=== PATIENT | male | born 1940 | race Caucasian/White ===

== ENCOUNTER → 2020-04-24 14:10 | Outpatient (BNVA) | payer MEDICARE, SELFPAY | PROVIDERS: Family Provider Internal Medicine; Visit Provider Dermatology | DX: L98.9 Disorder of the skin and subcutaneous tissue, unspecified (principal); D23.9 Other benign neoplasm of skin, unspecified; L82.1 Other seborrheic keratosis; L57.0 Actinic keratosis; B35.6 Tinea cruris; Z12.83 Encounter for screening for malignant neoplasm of skin | CPT/HCPCS: 17000; 17003; 99203 ==

== ENCOUNTER 2024-10-22 20:47 | Inpatient (IN) | payer MEDICARE, SELFPAY ==
[2024-10-22 20:52] VITALS: BP 135/74; PULSE 69; RESP 14; TEMP 36.6; O2SAT 94; BMI 31.1
--- NOTE | 2024-10-22 21:05 | ECG_ITS ---
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 Measurements Intervals [place] Rate: 74 P: 83 [place]: 255 QRS: 3 QRSD: 93 T: -5 QT: 378 QTc: 420 Interpretive Statements SINUS RHYTHM WITH FIRST DEGREE AV BLOCK LOW QRS VOLTAGE IN PRECORDIAL LEADS [QRS DEFLECTION < 1.0 mV IN CHEST LEADS] No previous ECG available for comparison Electronically Signed On 10-23-2024 13:17:33 RETAIL DEPARTMENT RESET by Dom Crawford M.D. [email or web address]
--- NOTE | 2024-10-22 21:06 | XRR_ITS ---
PROCEDURE INFORMATION: Exam: XR Chest Exam date and time: 10/22/2024 9:43 PM Age: 83 years old Clinical indication: Weakness; Fluctuating heart rate; HTN; Sudden onset vertigo TECHNIQUE: Imaging protocol: Radiologic exam of the chest. Views: 1 view. COMPARISON: No relevant prior studies available. FINDINGS: Lungs: Left basilar lung opacity could relate to atelectasis or pneumonia. Pleural spaces: Unremarkable. No pleural effusion. No pneumothorax. Heart/Mediastinum: Mildly enlarged pericardial silhouette. Bones/joints: Unremarkable. XR/XR chest 1V portable [id number] IMPRESSION: 1. Left basilar lung opacity could relate to atelectasis or pneumonia. 2. Mildly enlarged pericardial silhouette.
[2024-10-22 21:15] LABS: Glucose Point of Care 109 mg/dL (70-110)
--- NOTE | 2024-10-22 21:48 | ED_ITS ---
HPI - Dizziness 2 General: Chief Complaint: Dizziness Stated Complaint: dizzy n/d confused Time Seen by Provider: 10/22/24 21:40 History of Present Illness: HPI Narrative: P presents to the ER with complaints of dizziness that started about 30 minutes ago. He states walking in [employer] all of a sudden he got dizzy to the point he was swaying and not walking a straight line. Patient is also little bit nauseous at this time. Patient says he has not no other complaints at all. No headache chest pain patient says he is normally very healthy person does not have to go to the [facility] very often so this is very unusual. said he has been more congested the last 2 or 3 days and usual but denies any fever or chills, Related Data Home Medications Medication Instructions Recorded Confirmed aspirin 81 mg tablet,delayed 162 mg PO DAILY 04/24/20 04/24/20 release (Aspir-) tamsulosin 0.4 mg capsule (Flomax) 0.4 mg PO .COMPLEX 04/24/20 04/24/20 Previous Rx's Medication Instructions Recorded ketoconazole 2 % topical cream 1 applic topical DAILY #60 grams 04/24/20 mupirocin 2 % topical ointment 1 applic topical BID #22 grams 04/24/20 Allergies Allergy/AdvReac Type Severity Reaction Status Date / Time No Known Allergies Allergy Verified 10/22/24 21:04 Review of Systems 2 General: Reports: 10 or more systems reviewed and unremarkable except in HPI and below PFSH ED 2 PFSH: Family History Other Cancer Denies family history of Diabetes CAD (coronary artery disease) Social History Smoking and tobacco/nicotine status: never used tobacco/nicotine Alcohol intake: never Substance/Drug Use: never Physical Exam 2 Const: COMMON NORMALS: no acute distress, average body habitus, patient oriented x3, no limitations, healthy appearing, alert and well nourished HENMT: COMMON NORMALS: normocephalic, atraumatic, hearing grossly normal bilaterally, external ears normal, Normal external nose present and moist oral mucous membranes HEAD & SCALP: normocephalic and atraumatic NOSE: Normal external nose present EXTERNAL EAR: Yes external ears normal Neck/C-Spine: COMMON NORMALS: full ROM, no lymphadenopathy, supple, no meningeal signs, no JVD and Thyroid normal THYROID: Thyroid normal Chest: COMMONS NORMALS: normal inspection of the chest and normal palpation of entire chest wall Resp: COMMON NORMALS: normal respiratory effort, No retractions, No use of accessory muscles and clear to auscultation bilaterally AUSCULTATION: clear to auscultation bilaterally Cardio: COMMON NORMALS: no JVD, regular rate, regular rhythm, S1 normal heart sound present, S2 normal heart sound present, No gallops present (Cardio), No clicks present (Cardio), No murmurs present (Cardio) and No rub (Cardio) R ATE: regular rate RHYTHM: regular rhythm HEART SOUNDS: S1 normal heart sound present and S2 normal heart sound present GI: COMMON NORMALS: Normal to inspection, nondistended, normoactive bowel sounds present, Soft to palpation, non-tender, No hepatosplenomegaly present and no masses PALPATION: Yes Soft to palpation and Yes No hepatosplenomegaly present Neuro: COMMON NORMALS: patient oriented x3 SENSORIUM/ORIENTATION: Yes alert MENINGEAL SIGNS: Yes no meningeal signs Course 2 Vital Signs: Vital signs: Vital Signs Temperature 97.9 F 10/22/24 20:52 Pulse Rate 84 10/22/24 22:02 Respiratory Rate 16 10/22/24 22:02 Blood Pressure 152/84 10/22/24 22:02 Pulse Oximetry 94 10/22/24 22:02 Oxygen Delivery Me thod Room Air 10/22/24 20:52 MDM - Dizziness Medical Decision Making Exam was performed patient continued to have vertigo with vomiting requiring Zofran. Imaging was obtained as well as lab work, unremarkable his troponin initially was 161, 2-hour troponin was 141, both EKGs are as time was benign with no ST changes, head neck CTA showed no large vessel stenosis or occlusion, chest x-ray showed left basilar lung opacity could relate to atelectasis or pneumonia, however patient white count was normal. Discussed this case with Dr. Ho we will place patient observation. Medical Records I reviewed the patient's medical records. Lab Data I reviewed the patient's lab results. 10/22/24 21:50 10/22/24 21:50 Radiology Impressions Chest X-Ray 10/22/24 21:06 IMPRESSION: 1. Left basilar lung opacity could relate to atelectasis or pneumonia. 2. Mildly enlarged pericardial silhouette. Head/Neck CTA 10/22/24 21:56 IMPRESSION: No large vessel stenosis or occlusion. IMPRESSION: Less than 50% stenosis of the internal carotid arteries bilaterally according to the NASCET criteria. REFERENCES: NASCET CRITERIA. The degree of stenosis in the cervical segment of the internal carotid artery is based on NASCET criteria. Normal is no stenosis. Mild is less than 50% stenosis. Moderate is 50-69% stenosis. Severe is 70% to 99% stenosis. Total occlusion is no detectable patent lumen. Laboratory Results WBC 6.59 10^3/uL (3.29-11.43) 10/22/24 21:50 RBC 4.72 10^6/uL (3.85-5.65) 10/22/24 21:50 Hgb 14.70 g/dL (11.27-16.99) 10/22/24 21:50 Hct 45.2 % (37-53) 10/22/24 21:50 MCV 95.8 fl (82-101) 10/22/24 21:50 MCH 31.1 pg (27-33) 10/22/24 21:50 MCHC 32.5 g/dL (30-55) 10/22/24 21:50 RDW 13.8 % (12.1-15.1) 10/22/24 21:50 Plt Count 202 10^3/cmm (157-399) 10/22/24 21:50 MPV 10.4 fL (7.4-10.4) 10/22/24 21:50 Neut % (Auto) 70.9 % 10/22/24 21:50 Lymph % (Auto) 17.6 % 10/22/24 21:50 Hardeman % (Auto) 8.0 % 10/22/24 21:50 Eos % (Auto) 2.4 % 10/22/24 21:50 Baso % (Auto) 0.8 % 10/22/24 21:50 Neut # (Auto) 4.67 10^3/uL (1.8-7.7) 10/22/24 21:50 Lymph # (Auto) 1.2 10^3/uL (0.8-4.8) 10/22/24 21:50 Hardeman # (Auto) 0.5 10^3/uL (0.2-0.9) 10/22/24 21:50 Eos # (Auto) 0.2 10^3/uL (0.0-0.8) 10/22/24 21:50 Baso # (Auto) 0.1 10^3/uL (0.0-0.1) 10/22/24 21:50 Nucleated RBC % (auto) 0 % 10/22/24 21:50 Nucleated RBCs # 0.0 /100WBC 10/22/24 21:50 Sodium 136 mmol/L (136-145) 10/22/24 21:50 Potassium 4.0 mmol/L (3.5-5.1) 10/22/24 21:50 Chloride 101 mmol/L (98-107) 10/22/24 21:50 Carbon Dioxide 23 mmol/L (22-29) 10/22/24 21:50 Anion Gap 16.0 (5-19) 10/22/24 21:50 BUN 18 mg/dL (8-23) 10/22/24 21:50 Creatinine 0.8 mg/dL (0.7-1.2) 10/22/24 21:50 GFR Calculation Not Reportable 10/22/24 21:50 Glucose 155 mg/dL (65-115) H 10/22/24 21:50 POC Glucose 109 mg/dL (70-110) 10/22/24 21:02 Calculated Osmolality 287 mOsm/kg (285-295) 10/22/24 21:50 Calcium 9.2 mg/dL (8.5-10.5) 10/22/24 21:50 Magnesium 2.0 mg/dL (1.7-2.3) 10/22/24 21:50 Total Bilirubin 0.3 mg/dL (0.15-1.2) 10/22/24 21:50 AST 18 U/L (0-40) 10/22/24 21:50 ALT 18 U/L (0-41) 10/22/24 21:50 Alkaline Phosphatase 36 U/L (40-130) L 10/22/24 21:50 Troponin T Baseline 161 ng/L (0-15) H* 10/22/24 21:50 Troponin T 120 Minute 141.3 ng/L (0-15) H 10/22/24 23:36 Delta Troponin T -19.7 ABS# (0-10) L 10/22/24 23:36 C-Reactive Protein 3.0 mg/L (0.0-4.9) 10/22/24 21:50 Total Protein 6.6 g/dL (6.6-8.7) 10/22/24 21:50 Albumin 4.2 g/dL (3.5-5.2) 10/22/24 21:50 Globulin 2.4 g/dL (1.3-4.6) 10/22/24 21:50 Coronavirus (PCR) Negative (Negative) 10/22/24 21:50 Influenza A (PCR) Negative (Negative) 10/22/24 21:50 Influenza Type B (PCR) Negative (Negative) 10/22/24 21:50 RSV (PCR) Negative (Negative) 10/22/24 21:50 All radiology interpretation(s) finalized by discharge Discharge Plan Discharge Patient Disposition: Placed in Observation Clinical Impression: Vertigo, Nausea & vomiting, Elevated troponin Coding Level of Care Code ED Radio Communications Mechanician for Zachery Yang
--- NOTE | 2024-10-22 21:56 | CTR_ITS ---
PROCEDURE INFORMATION: Exam: CTA Head With Contrast, Arteriography Exam date and time: 10/22/2024 10:10 PM Age: 83 years old Clinical indication: Dizziness and giddiness and other: N/v; Sudden onset of severe dizziness with n/v and weakness. ; Additional info: Sudden onset vertigo, nausea vomiting TECHNIQUE: Imaging protocol: Computed tomographic angiography of the head with contrast. Exam focused on the arteries. 3D rendering (Not supervised by radiologist): MIP and/or 3D reconstructed images were created by the technologist. Radiation optimization: All CT scans at this facility use at least one of these dose optimization techniques: automated exposure control; mA and/or kV adjustment per patient size (includes targeted exams where dose is matched to clinical indication); or iterative reconstruction. Contrast material: OMNI 350; Contrast volume: 100 ml; Contrast route: INTRAVENOUS (IV); COMPARISON: l spine RADIATION DOSE METRICS: Total DLP (mGy-cm): 1089.77 FINDINGS: ANTERIOR CIRCULATION: Right internal carotid artery: Intracranial segment is patent with no significant stenosis. No aneurysm. Right middle cerebral artery: No occlusion or significant stenosis. No aneurysm. Right anterior cerebral artery: No occlusion or significant stenosis. No aneurysm. Left internal carotid artery: Intracranial segment is patent with no significant stenosis. No aneurysm. Left middle cerebral artery: No occlusion or significant stenosis. No aneurysm. Left anterior cerebral artery: No occlusion or significant stenosis. No aneurysm. POSTERIOR CIRCULATION: Right vertebral artery: No occlusion or significant stenosis. No aneurysm. Left vertebral artery: No occlusion or significant stenosis. It is tortuous at its origin. No aneurysm. Basilar artery: No occlusion or significant stenosis. No aneurysm. Right posterior cerebral artery: No occlusion or significant stenosis. No aneurysm. Left posterior cerebral artery: No occlusion or significant stenosis. No aneurysm. Brain: No hemorrhage. Diffuse periventricular white matter disease. No mass effect. No collections. Age related volume loss. Old left cerebellar infarct. Cerebral ventricles: No ventriculomegaly. Mastoid air cells: Mastoid air cells are aerated with no effusions. Paranasal sinuses: No significant air-fluid levels noted in the visualized sinuses. Bones/joints: No acute osseous abnormality. Soft tissues: Unremarkable. PROCEDURE INFORMATION: Exam: CTA Neck With Contrast Exam date and time: 10/22/2024 10:10 PM Age: 83 years old Clinical indication: Dizziness and giddiness and other: N/v; Sudden onset of severe dizziness with n/v and weakness. ; Additional info: Sudden onset vertigo, nausea vomiting TECHNIQUE: Imaging protocol: Computed tomographic angiography of the neck with contrast. Exam focused on the cervical segments of the vasculature. 3D rendering (Not supervised by radiologist): MIP and/or 3D reconstructed images were created by the technologist. Radiation optimization: All CT scans at this facility use at least one of these dose optimization techniques: automated exposure control; mA and/or kV adjustment per patient size (includes targeted exams where dose is matched to clinical indication); or iterative reconstruction. Contrast material: OMNI 350; Contrast volume: 100 ml; Contrast route: INTRAVENOUS (IV); COMPARISON: CR (CHEST, ) 10/22/2024 9:43 PM RADIATION DOSE METRICS: Total DLP (mGy-cm): 1089.77 FINDINGS: Right common carotid artery: There is minimal plaque noted in the right carotid bulb. Right internal carotid artery: No stenosis of the extracranial segment. No dissection or occlusion. Right external carotid artery: No occlusion or stenosis of the origin. Left common carotid artery: There is minimal plaque noted in the left carotid bulb. Left internal carotid artery: 5% stenosis of the extracranial segment. No dissection or occlusion. Left external carotid artery: No occlusion or stenosis of the origin. Right vertebral artery: Atherosclerotic disease with no significant stenosis. No dissection or occlusion. Left vertebral artery: Atherosclerotic disease with no significant stenosis. No dissection or occlusion. Aorta: Classic branching of the aorta with patency of the origins of the great vessels. Soft tissues: Normal. No significant soft tissue swelling. Bones/joints: No acute fracture. CT/CT angio headneck* [id number] IMPRESSION: No large vessel stenosis or occlusion. IMPRESSION: Less than 50% stenosis of the internal carotid arteries bilaterally according to the NASCET criteria. REFERENCES: NASCET CRITERIA. The degree of stenosis in the cervical segment of the internal carotid artery is based on NASCET criteria. Normal is no stenosis. Mild is less than 50% stenosis. Moderate is 50-69% stenosis. Severe is 70% to 99% stenosis. Total occlusion is no detectable patent lumen.
[2024-10-22 21:59] LABS: Basophils # 0.1 10^3/uL (0.0-0.1); Basophils % 0.8 %; Eosinophils # 0.2 10^3/uL (0.0-0.8); Eosinophils % 2.4 %; Hematocrit 45.2 % (37-53); Lymphocytes # 1.2 10^3/uL (0.8-4.8); Lymphocytes % 17.6 %; Mean Corpuscular HGB Conc 32.5 g/dL (30-55); Mean Corpuscular Hemoglobin 31.1 pg (27-33); Mean Corpuscular Volume 95.8 fl (82-101); Mean Platelet Volume 10.4 fL (7.4-10.4); Monocytes # 0.5 10^3/uL (0.2-0.9); Neutrophils # 4.67 10^3/uL (1.8-7.7); Neutrophils % 70.9 %; Nucleated Red Blood Cells % 0 %; Platelet Count 202 10^3/cmm (157-399); Red Blood Count 4.72 10^6/uL (3.85-5.65); Red Cell Distribution Width 13.8 % (12.1-15.1); White Blood Count 6.59 10^3/uL (3.29-11.43)
[2024-10-22] MEDS: ondansetron 2 mg/ML SDV 2 mL 8 MG IVP (22:01)
[2024-10-22 22:02] VITALS: BP 152/84; PULSE 84; RESP 16; O2SAT 94
[2024-10-22] MEDS: sodium chloride 0.9% 1,000 ML 999 ML IV (22:02)
[2024-10-22] MEDS: iohexol 350 mg/mL 500 mL Btl (per mL) IV (22:16)
[2024-10-22 22:32] LABS: Troponin(5th) Baseline 161 ng/L (0-15)
[2024-10-22 22:33] LABS: Alanine Aminotransferase 18 U/L (0-41); Albumin Level 4.2 g/dL (3.5-5.2); Alkaline Phosphatase 36 U/L (40-130); Aspartate Amino Transferase 18 U/L (0-40); Blood Urea Nitrogen 18 mg/dL (8-23); Calcium 9.2 mg/dL (8.5-10.5); Carbon Dioxide 23 mmol/L (22-29); Chloride 101 mmol/L (98-107); Creatinine Clr Calc Pharmacy 87.3707; Globulin 2.4 g/dL (1.3-4.6); Glucose 155 mg/dL (65-115); Osmolality Calculated 287 mOsm/kg (285-295); Sodium 136 mmol/L (136-145); Total Bilirubin 0.3 mg/dL (0.15-1.2); Total Protein 6.6 g/dL (6.6-8.7)
[2024-10-22 22:37] LABS: Covid PCR NEGATIVE (Negative); Influenza A NEGATIVE (Negative); Influenza B NEGATIVE (Negative); Respiratory Syncytial Virus Ce NEGATIVE (Negative)
--- NOTE | 2024-10-22 23:01 | ECG_ITS ---
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 Measurements Intervals [place] Rate: 68 P: 50 [place]: 273 QRS: 5 QRSD: 97 T: -14 QT: 408 QTc: 436 Interpretive Statements SINUS RHYTHM WITH FIRST DEGREE AV BLOCK LOW QRS VOLTAGE IN PRECORDIAL LEADS [QRS DEFLECTION < 1.0 mV IN CHEST LEADS] Compared to ECG 10/22/2024 21:05:39 No significant changes Electronically Signed On 10-23-2024 13:28:57 MILK PROCESSING WORKER by Dom Crawford M.D. [email or web address]
[2024-10-23] VITALS (9 sets, daily range): BP systolic 120–163; BP diastolic 75–98; PULSE 68–83; RESP 15–19; TEMP 36.3–36.7; O2SAT 94–97; BMI 33.5
[2024-10-23 00:06] LABS: Troponin 5 2HR 141.3 ng/L (0-15); Troponin 5 2HR Delta -19.7 ABS# (0-10)
--- NOTE | 2024-10-23 00:11 | P.HP_ITS ---
Providers/Chief Complaint 2 Primary Care Provider: Caro Schrader MD Chief Complaint: dizzy n/d confused History of Present Illness Carla Mandel is a 83 year old male with no significant past medical history, presented with chief complaint of dizziness. Patient is stating that he recently started working on his cardio, he has been doing treadmill for about a month, today he was at the [facility] when he started becoming dizziness, he describing dizziness room spinning in front of him, he has not experienced any chest pain or shortness of breath or diaphoresis but endorsing nausea and vomiting. No previous history of GA or CHF hypertension or diabetes. Patient was given aspirin by his PCP which he stopped taking. Patient consider himself to be perfectly healthy. Follows up with Dr. Sanchez as PCP. Workup in the ER revealed normal CBC, BMP, EKG unremarkable head CT unremarkable, does not have any focal deficit, symptoms consistent with BPPV however his troponin came back high at 161 trending down 141 patient not have any active chest pain shortness of breath EKG without ischemic or infarctive changes ACS protocol initiated, echo requested, Review of Systems 2 Const: Denies: fever(s) Eyes: Denies: change in vision ENMT: Denies: throat pain Card: Denies: chest pain Resp: Denies: dyspnea GI: Denies: abdominal pain Neuro: Reports: vertigo Medications/Allergies Home Medications Medication Instructions Recorded Confirmed Last Taken Type aspirin 81 mg tablet,delayed 162 mg PO DAILY 04/24/20 04/24/20 Unknown History release (Aspir-) ketoconazole 2 % topical cream 1 applic topical DAILY #60 grams 04/24/20 04/24/20 Unknown Rx mupirocin 2 % topical ointment 1 applic topical BID #22 grams 04/24/20 04/24/20 Unknown Rx tamsulosin 0.4 mg capsule (Flomax) 0.4 mg PO .COMPLEX 04/24/20 04/24/20 Unknown History Allergies Allergy/AdvReac Type Severity Reaction Status Date / Time No Known Allergies Allergy Verified 10/22/24 21:04 PFSH Acute 2 PFSH: Family History Other Cancer Denies family history of Diabetes CAD (coronary artery disease) Social History Smoking and tobacco/nicotine status: never used tobacco/nicotine Alcohol intake: never Substance/Drug Use: never Vitals/I&O/Wt Last Vital Signs Temp 97.9 F 10/22/24 20:52 Pulse 84 10/22/24 22:02 Resp 16 10/22/24 22:02 BP 152/84 10/22/24 22:02 Pulse Ox 94 10/22/24 22:02 O2 Del Method Room Air 10/22/24 20:52 Weight last 48 hrs Weight 104.326 kg Physical Exam 2 Narrative: Awake and alert GCS 15 AO x 4 Nonfocal neuroexam Pleasant and cooperative S1, S2 Currently on room air Hypertensive Distended nontender abdomen No active murmur Lower extremity no edema Patient laying supine without any active shortness of breath Doing well on room air Feels dizzy on movement of head Data 10/22/24 21:50 10/22/24 21:50 A&P Assessment and plan (1) Non-STEMI (non-ST elevated myocardial infarction): (2) Elevated troponin: (3) Vertigo: (4) Nausea & vomiting: (5) Posterior circulation stroke: Plan Non-STEMI Start ACS protocol Troponin trending down No active chest pain EKGs without ischemic or infarctive changes Check D-dimer Patient does not have any history of GA or CHF Echo requested Patient may need cardiology consultation depending on echo report Patient is stating that for last 1 month he has been running on the treadmill for his cardio Hypertension: Add lisinopril at this point does not take any medication at home Morbid obesity: No history of sleep apnea, check A1c level, BNP, hemoglobin A1c, lipid profile Dizziness Patient describing as room spinning in front of him Consistent with BPPV Rule out posterior circulation stroke Will request head MRI CTA head and neck unremarkable 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
--- NOTE | 2024-10-23 01:02 | MRR_ITS ---
PROCEDURE INFORMATION: Exam: MR Head Without Contrast Exam date and time: 10/23/2024 12:16 PM Age: 83 years old Clinical indication: Rapid onset severe dizziness, n/v resulting; Additional info: Dizzy TECHNIQUE: Imaging protocol: Magnetic resonance imaging of the head without contrast. COMPARISON: CT angio headneck* [id number] 10/22/2024 10:10 PM FINDINGS: Brain: There is restricted diffusion with high T2 weighted signal in the left inferior cerebellum involving the left posteroinferior cerebellar artery territory. Blooming artifact in the left frontal periventricular white matter, from prior micro bleed. No hemorrhagic transformation. No intracranial mass. Cerebral ventricles: Normal. No ventriculomegaly. Bones: Unremarkable. Paranasal sinuses: Normal as visualized. No acute sinusitis. Mastoid air cells: Normal as visualized. No mastoid effusion. Orbital cavities: Unremarkable. Soft tissues: Unremarkable. MR/MR head wo con* [id number] IMPRESSION: Acute infarct in the PICA territory with no hemorrhagic transformation.
--- NOTE | 2024-10-23 01:10 | USCV_ITS ---
Carla Mandel Age: 83 Gender: M : 1940 Exam Date: 10/23/2024 14:22 Ordering Phys: Taj Ho MD Technologist: Casper Booker [place]am [place] [facility] [place]: dizziness BP: 130 / 88 HR: 74 Rhythm: Sinus Technical Quality: Adequate MEASUREMENTS (Male / Female) Normal Values 2D ECHO LV Diastolic Diameter PLAX 5.5 cm 4.2 - 5.9 / 3.9 - 5.3 cm IVS Diastolic Thickness 1.1 cm 0.6 - 1.0 / 0.6 - 0.9 cm IVS Systolic Thickness 1.4 cm LVPW Diastolic Thickness 1.4 cm 0.6 - 1.0 / 0.6 - 0.9 cm LVPW Systolic Thickness 1.5 cm LVOT Diameter 2.0 cm LV Ejection Fraction 2D Teich 65.2 % LV Ejection Fraction MOD 4C 68.8 % LV Ejection Fraction MOD 2C 66.3 % LV Ejection Fraction 2C AL 64.8 % LA Diameter 3.7 cm RA Systolic Volume 4C AL 44.6 ml RA Systolic Volume 4C MOD 42.4 ml LA Sys Volume AL 48.0 cm cubed LA Sys Volume Index AL 20.4 cm cubed/m squared Aorta at Sinotubular Diameter 2.9 cm M-MODE LA Ao Ratio MM 1.8 AV Cusp Separation MM 1.2 cm DOPPLER AV Peak Velocity 158.0 cm/s MV Peak Velocity 89.0 cm/s MV Area PHT 4.5 cm squared Mitral E to A Ratio 0.8 TV Peak Velocity 311.0 cm/s TR Peak Velocity 338.0 cm/s TR Peak Gradient 45.7 mmHg TR Mean Velocity 290.0 cm/s TR Mean Gradient 34.7 mmHg TR Velocity Time Integral 102.4 cm PV Peak Velocity 115.0 cm/s RV Ejection Time 0.4 s FINDINGS Left Ventricle Left ventricle is normal in size. LV systolic function is normal with EF of 60-65%. No regional wall motion abnormalities are seen. Grade 1 diastolic dysfunction. Right Ventricle Normal in size and function Right Atrium Normal in size Left Atrium Normal in size Mitral Valve Structurally normal valve. Mild mitral regurgitation. Aortic Valve Structurally normal aortic valve. Trace aortic regurgitation. No significant stenosis. Tricuspid Valve Mild tricuspid regurgitation. Insufficient TR jet to calculate RVSP Pulmonic Valve Not well visualized Pericardium Normal Aorta Normal in size IVC Not well visualized CONCLUSIONS LV systolic function is normal with EF of 60-65% Grade 1 diastolic dysfunction Mild mitral regurgitation Trace aortic regurgitation Mild tricuspid regurgitation No comparison studies are available. Dom Crawford MD (Electronically Signed) Final Date: 24 October 2024 12:02 S
[2024-10-23] MEDS: aspirin 325 mg EC Tablet PO (01:26)
[2024-10-23] MEDS: clopidogrel 300 mg Tablet PO (01:26)
[2024-10-23] MEDS: enoxaparin 100 mg/mL Syringe SUBCUT (01:26)
[2024-10-23 02:04] LABS: Chol HDL Ratio 3.07 mg/dL (1.0-5.00); Cholesterol 181 mg/dL (0-200); HDL Cholesterol 59 mg/dL (60-100); LDL Cholesterol Calculated 114 mg/dL (50-129); NT Pro B Type Natriuretic Pept 287 pg/mL (0-450); Thyroid Stimulating Hormone 2.28 uIU/mL (0.27-4.20); Triglycerides 42 mg/dL (0-150); VLDL Cholestrol Calculation 8 mg/dL (0-30)
[2024-10-23 02:11] LABS: D Dimer 0.59 ug/mLFEU (0-0.59)
[2024-10-23 04:29] LABS: Basophils % 0.2 %; Eosinophils % 0.1 %; Hematocrit 46.3 % (37-53); Lymphocytes # 0.4 10^3/uL (0.8-4.8); Lymphocytes % 4.7 %; Mean Corpuscular HGB Conc 31.3 g/dL (30-55); Mean Corpuscular Hemoglobin 31.1 pg (27-33); Mean Corpuscular Volume 99.4 fl (82-101); Monocytes # 0.3 10^3/uL (0.2-0.9); Neutrophils # 7.59 10^3/uL (1.8-7.7); Neutrophils % 91.6 %; Nucleated Red Blood Cells % 0 %; Platelet Count 144 10^3/cmm (157-399); Red Blood Count 4.66 10^6/uL (3.85-5.65); Red Cell Distribution Width 13.7 % (12.1-15.1); White Blood Count 8.29 10^3/uL (3.29-11.43)
[2024-10-23 04:44] LABS: Estmated Average Glucose 108; Hemoglobin A1C 5.4 % (4.0-6.0)
[2024-10-23 04:54] LABS: Troponin 5 6HR 110.9 ng/L (0-15); Troponin 5 6HR Delta -50.1 ng/L (0-12)
--- NOTE | 2024-10-23 05:25 | ECG_ITS ---
[facility] Test Date: 2024-10-23 Pat Name: Carla Mandel Department: Room: 250 Gender: Male Inside B2B Sales: : 1940 Requested By: Jose Angel Peña Order Number: [id number] Caitlin MD: Dom Crawford M.D. Measurements Intervals [place] Rate: 75 P: 61 [place]: 261 QRS: 22 QRSD: 106 T: -28 QT: 376 QTc: 421 Interpretive Statements SINUS RHYTHM WITH FIRST DEGREE AV BLOCK Compared to ECG 10/22/2024 23:01:20 No significant changes Electronically Signed On 10-23-2024 13:28:48 PERSONAL INJURY LAW SPECIALIST by Dom Crawford M.D. [email or web address]
[2024-10-23 05:31] LABS: Vitamin B12 304 pg/mL (232-1245)
[2024-10-23 05:41] LABS: Blood Urea Nitrogen 14 mg/dL (8-23); Calcium 8.5 mg/dL (8.5-10.5); Carbon Dioxide 21 mmol/L (22-29); Chloride 99 mmol/L (98-107); Creatine Phosphokinase 77 U/L (39-308); Creatinine Clr Calc Pharmacy 90.3874; Glucose 131 mg/dL (65-115); Osmolality Calculated 276 mOsm/kg (285-295); Sodium 132 mmol/L (136-145)
[2024-10-23 05:42] LABS: Anion Gap 16.5 (5-19); Lactate Dehydrogenase 247 U/L (135-225); Potassium 4.5 mmol/L (3.5-5.1)
[2024-10-23] MEDS: ondansetron 2 mg/ML SDV 2 mL 4 MG IVP (06:09)
[2024-10-23] MEDS: efferdent effervescent 1 EACH DENTAL (06:39)
[2024-10-23] MEDS: tamsulosin 0.4 mg Capsule PO (10:20)
[2024-10-23] MEDS: atorvastatin 40 mg Tablet 80 MG PO (10:20)
--- NOTE | 2024-10-23 11:10 | PC.CHAP ---
Pastoral Care Encounter/Spiritual Assessment Type of Contact [] Declined sign fabricator visit [] Patient/Family/Request visit [] Outpatient visit [] Follow-up visit [] Physician referral [] Code/Alert [] Routine visit [] Staff referral [] Actively dying [] Patient sleeping [] Family support [] [] Out of room [] Palliative care [] [] Receiving care in room [] Pre-surgical visit [] Trauma [] Long length of stay [] ICU visit [] Other:Phone X2 Relational/Emotional Strength [] Patient feels connected with others/family/visitors/staff [] Distress [] Loneliness/isolation [] Abandonment Spirituality of Patient [] Person of Millie [] Attends Yarsanism of their Millie [] Believes in Prayer [] Reads Bible or Protestant materials [] There are Spiritual issues to be addressed Court [place] Interventions [] Prayer [] Active listening [] Non-anxious presence [] Spiritual/emotional support [] Crisis/trauma care [] Spiritual counseling [] Bereavement support [] Provided bereavement packet [] Provided Bible/devotional materials [] Provided toy/stuffed animal, coloring book to patient or family member [] Provided Communion [] Anointing/[place] [] Salvation [] Completed spiritual assessment [] Other: Impact on Illness or Injury [] Angry [] Fearful [] Anxious [] Often cries [] Exhaustion [] Unable to work [] Unable to attend adventist [] Unable to walk/stand [] Unable to read [] Unable to drive [] Unable to eat/drink [] Unable to sleep [] Unable to be with family [] Patient intubated [] Other: Summary Time spent with patient
--- NOTE | 2024-10-23 15:01 | P.MISC_ITS ---
Miscellaneous Note Note: Patient admitted this morning by family dinner service specialist. Agree with plan of care as documented in H&P. MRI is positive for posterior stroke. Met with patient and spouse. Discussed findings. Discussed plan of care.
[2024-10-23] MEDS: enoxaparin 40 mg/0.4 mL Syringe SUBCUT (21:24)
[2024-10-24] VITALS (9 sets, daily range): BP systolic 106–155; BP diastolic 66–87; PULSE 55–76; RESP 16–18; TEMP 36.6–37; O2SAT 93–97
[2024-10-24] MEDS: tamsulosin 0.4 mg Capsule PO (08:58)
[2024-10-24] MEDS: aspirin 81 mg EC Tablet PO (08:58)
[2024-10-24] MEDS: clopidogrel 75 mg Tablet PO (08:59)
[2024-10-24] MEDS: lisinopril 10 mg Tablet 5 MG PO (09:00)
[2024-10-24] MEDS: enoxaparin 40 mg/0.4 mL Syringe SUBCUT (09:01)
--- NOTE | 2024-10-24 11:02 | P.PN_ITS ---
Subjective 2 Subjective: Patient reports he starting to feel better today. His nausea has improved, nearly resolved. He worked with therapy yesterday. So far he is only been able to stand. Has not ambulated yet. Blood pressure soft overnight, slightly elevated this morning. Spouse is bedside and very supportive. We discussed ongoing plan of care including following up echo, monitoring of blood pressure, Occupational Therapy evaluation, continue physical therapy, and supportive care. They are in agreement. Medications: Reviewed: Yes Vitals/I&O/Wt Last Vital Signs Temp 97.9 F 10/24/24 10:52 Pulse 63 10/24/24 10:53 Resp 18 10/24/24 10:53 BP 137/76 10/24/24 10:52 Pulse Ox 95 10/24/24 10:53 O2 Del Method Room Air 10/24/24 10:53 10/23/24 10/24/24 10/24/24 22:59 06:59 14:59 Intake Total 240 / 600 360 / 360 Output Total 1400 / 1725 1240 / 2965 Balance -1160 / -1125 -1240 / -2365 360 / 360 Weight last 48 hrs Weight 110.495 kg Weight 111.947 kg Weight 112.173 kg Weight 104.326 kg Physical Exam 2 Narrative: General: Patient is awake and alert. Head: Normocephalic. Atraumatic. EOM intact. Neck: No JVD. Cardiovascular: RRR. No gallops. No murmurs. Lungs: Clear to auscultation, no use of accessory muscles, no crackles or wheezes. Skin: No jaundice. No rashes. Abdomen: Normal bowel sounds, abdomen soft and nontender. Genito Urinary: Genital exam not performed since complaints not related. Rectal: Rectal exam not performed since no symptoms indicated blood loss. Extremities: No cyanosis or clubbing. Musculoskeletal: No swollen or erythematous joints. Neurological: Moves all 4 extremities. No myoclonus. 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 Remains symptomatic but improving with treatment Continue dual antiplatelet therapy Continue high intensity statin Continue physical therapy Occupational Therapy evaluation pending End permissive hypertension Echo obtained, follow-up read Serial neurological exams (2) Elevated troponin: Troponin elevation secondary to acute stroke (3) Vertigo: Vertigo secondary to acute posterior stroke Treating underlying stroke (4) Nausea & vomiting: Nausea and vomiting secondary to significant vertigo from stroke Symptoms are improving Antiemetics as needed Continue treating underlying stroke Supportive care (5) Hypertension: And permissive hypertension Continue lisinopril 5 mg daily, titrate as needed Plan DVT ppx: Lovenox Attestations 2 Medical Necessity Statement*: Patient requires ongoing hospitalization for further workup and treatment of the stroke, follow-up with echo, additional therapy evaluations, and supportive care. Coding Level of Care Code [facility] Diagnoses Posterior circulation stroke I63.50 Elevated troponin R79.89 Vertigo R42 Nausea & vomiting R11.2 Hypertension I10
[2024-10-24 13:56] LABS: Basophils # 0.1 10^3/uL (0.0-0.1); Basophils % 0.7 %; Eosinophils # 0.2 10^3/uL (0.0-0.8); Eosinophils % 2.1 %; Lymphocytes # 0.9 10^3/uL (0.8-4.8); Lymphocytes % 11.9 %; Mean Corpuscular HGB Conc 32.3 g/dL (30-55); Mean Corpuscular Hemoglobin 30.8 pg (27-33); Mean Corpuscular Volume 95.3 fl (82-101); Mean Platelet Volume 10.7 fL (7.4-10.4); Monocytes # 0.6 10^3/uL (0.2-0.9); Monocytes % 8.1 %; Neutrophils # 5.86 10^3/uL (1.8-7.7); Neutrophils % 76.9 %; Nucleated Red Blood Cells % 0 %; Platelet Count 218 10^3/cmm (157-399); Red Blood Count 4.93 10^6/uL (3.85-5.65); Red Cell Distribution Width 14.1 % (12.1-15.1); White Blood Count 7.62 10^3/uL (3.29-11.43)
[2024-10-24 14:22] LABS: Albumin Level 3.9 g/dL (3.5-5.2); Anion Gap 14.2 (5-19); Blood Urea Nitrogen 17 mg/dL (8-23); Calcium 9.2 mg/dL (8.5-10.5); Carbon Dioxide 27 mmol/L (22-29); Chloride 102 mmol/L (98-107); Creatinine Clr Calc Pharmacy 89.8126; Glucose 106 mg/dL (65-115); Magnesium 2.1 mg/dL (1.7-2.3); Phosphorus 2.7 mg/dL (2.5-4.5); Potassium 4.2 mmol/L (3.5-5.1); Sodium 139 mmol/L (136-145)
[2024-10-24] MEDS: atorvastatin 40 mg Tablet 80 MG PO (21:14)
[2024-10-25 04:00] VITALS: BP 145/79; PULSE 58; RESP 16; TEMP 36.6; O2SAT 95
[2024-10-25 04:47] LABS: Basophils # 0.1 10^3/uL (0.0-0.1); Basophils % 0.9 %; Eosinophils # 0.2 10^3/uL (0.0-0.8); Eosinophils % 3.2 %; Hematocrit 44.8 % (37-53); Lymphocytes # 1.1 10^3/uL (0.8-4.8); Lymphocytes % 15.7 %; Mean Corpuscular HGB Conc 32.1 g/dL (30-55); Mean Corpuscular Hemoglobin 31.4 pg (27-33); Mean Corpuscular Volume 97.8 fl (82-101); Mean Platelet Volume 10.7 fL (7.4-10.4); Monocytes # 0.7 10^3/uL (0.2-0.9); Monocytes % 9.9 %; Neutrophils # 4.86 10^3/uL (1.8-7.7); Nucleated Red Blood Cells % 0 %; Platelet Count 187 10^3/cmm (157-399); Red Blood Count 4.58 10^6/uL (3.85-5.65); Red Cell Distribution Width 13.9 % (12.1-15.1); White Blood Count 6.94 10^3/uL (3.29-11.43)
[2024-10-25 05:57] LABS: Alanine Aminotransferase 18 U/L (0-41); Albumin Level 3.6 g/dL (3.5-5.2); Alkaline Phosphatase 30 U/L (40-130); Anion Gap 17.4 (5-19); Aspartate Amino Transferase 24 U/L (0-40); Blood Urea Nitrogen 15 mg/dL (8-23); Calcium 8.8 mg/dL (8.5-10.5); Carbon Dioxide 22 mmol/L (22-29); Chloride 102 mmol/L (98-107); Creatinine Clr Calc Pharmacy 89.5613; Globulin 2.2 g/dL (1.3-4.6); Glucose 87 mg/dL (65-115); Magnesium 2.1 mg/dL (1.7-2.3); Osmolality Calculated 284 mOsm/kg (285-295); Phosphorus 2.7 mg/dL (2.5-4.5); Potassium 4.4 mmol/L (3.5-5.1); Sodium 137 mmol/L (136-145); Total Bilirubin 0.5 mg/dL (0.15-1.2); Total Protein 5.8 g/dL (6.6-8.7)
[2024-10-25 06:00] VITALS: PULSE 61
[2024-10-25 07:13] VITALS: BP 138/82; PULSE 57; RESP 17; TEMP 36.7; O2SAT 97
[2024-10-25] MEDS: clopidogrel 75 mg Tablet PO (07:53)
[2024-10-25] MEDS: aspirin 81 mg EC Tablet PO (07:53)
[2024-10-25] MEDS: lisinopril 10 mg Tablet 5 MG PO (07:53)
[2024-10-25] MEDS: tamsulosin 0.4 mg Capsule PO (07:54)
[2024-10-25] MEDS: enoxaparin 40 mg/0.4 mL Syringe SUBCUT (07:54)
[2024-10-25 08:40] VITALS: PULSE 55; RESP 16; O2SAT 97
--- NOTE | 2024-10-25 10:52 | P.DS_ITS ---
Discharge Providers Date of Admission: 10/23/24 00:11 Date of Discharge: October 25, 2024 Attending Provider at Admission: Taj Ho MD Attending Provider at Discharge: Ondina Storey MD Primary Care Provider: Caro Schrader MD Diagnoses at Discharge Discharge Diagnosis (1) Posterior circulation stroke: Status: Acute (2) Elevated troponin: Status: Acute (3) Vertigo: Status: Acute (4) Nausea & vomiting: Status: Acute (5) Hypertension: Status: Acute Reason for Visit Reason for Visit: dizzy n/d confused Brief History: 83 year old male with no significant pas t medical history, presented with chief complaint of dizziness. He was at the grocery store when he suddenly started to experience dizziness, sensation of room spinning around him. He was brought into the emergency room and is found to have elevated troponins. He did not have any focal neurological deficits but had persistent nausea vomiting. Baseline troponin was at 161, trending down improvement 6 hours. EKG did not show any acute ST-T wave changes. Echocardiogram was without any regional wall motion abnormalities. Because of the persistent dizziness and nausea he underwent an MRI of the brain due to suspicion for posterior circulation stroke. MRI confirmed acute infarct In the PICA territory without any hemorrhagic transformation. CTA of the head and neck was without any major vessel occlusion.Patient started on treatment with aspirin, Plavix, and high intensity statin. He is recommended to continue taking these medications and follow-up within the next week with his primary care physician in within the next 2 to 3 weeks with neurology as outpatient. There were no underlying arrhythmias e ncountered on telemetry. Patient was evaluated by physical therapy. [place]- Hallpike maneuver demonstrated nystagmus no dizziness. Patient has been referred for continued outpatient therapy for vertigo as an outpatient. Additionally encourage neurology follow-up. He has been started on lisinopril for hypertension. Recommended to undergo creatinine and potassium check with primary care physician within the next week. Physical Exam Narrative: General: No acute distress, AO x3 HEENT: PERRLA, pupils bilaterally equal and reactive, pallors not present Chest: Normal vesicular breath sounds, no added sounds, equal good air entry bilaterally CVS: S1-S2 regular, no murmurs, no tachycardia, no gallops, no rubs Abdomen: Soft, nontender, no organomegaly, bowel sounds present Neuro: No focal deficits, no facial deformity, AO x3, power 5/5 in all limbs Discharge Data Studies Completed and Pending Completed Studies During Hospitalization Category Date Time Status CT angio head neck [CT angio headneck* [id number]] Cat Scan 10/22/24 21:56 Completed Stat XR chest 1V portable [id number] Stat Exams 10/22/24 21:06 Completed MR head wo con* [id number] Routine MRI 10/23/24 01:02 Completed CV. echo complete* [id number] Routine Ultrasound 10/23/24 01:10 Completed Radiology Impressions Chest X-Ray 10/22/24 21:06 IMPRESSION: 1. Left basilar lung opacity could relate to atelectasis or pneumonia. 2. Mildly enlarged pericardial silhouette. Head/Neck CTA 10/22/24 21:56 IMPRESSION: No large vessel stenosis or occlusion. IMPRESSION: Less than 50% stenosis of the internal carotid arteries bilaterally according to the NASCET criteria. REFERENCES: NASCET CRITERIA. The degree of stenosis in the cervical segment of the internal carotid artery is based on NASCET criteria. Normal is no stenosis. Mild is less than 50% stenosis. Moderate is 50-69% stenosis. Severe is 70% to 99% stenosis. Total occlusion is no detectable patent lumen. Head MRI 10/23/24 01:02 IMPRESSION: Acute infarct in the PICA territory with no hemorrhagic transformation. ADDENDUM: 10/23/24 1325 IMPRESSION: Acute infarct in the left PICA territory with no hemorrhagic transformation. THIS REPORT CONTAINS FINDINGS THAT MAY BE CRITICAL TO PATIENT CARE. The findings were verbally communicated via telephone conference with Ajay Lim MD at 1:22 PM SPLICER APPRENTICE on 10/23/2024. The findings were acknowledged and understood. Laboratory Results WBC 6.94 10^3/uL (3.29-11.43) 10/25/24 02:33 RBC 4.58 10^6/uL (3.85-5.65) 10/25/24 02:33 Hgb 14.40 g/dL (11.27-16.99) 10/25/24 02:33 Hct 44.8 % (37-53) 10/25/24 02:33 MCV 97.8 fl (82-101) 10/25/24 02:33 MCH 31.4 pg (27-33) 10/25/24 02: MCHC 32.1 g/dL (30-55) 10/25/24 02:33 RDW 13.9 % (12.1-15.1) 10/25/24 02:33 Plt Count 187 10^3/cmm (157-399) 10/25/24 02:33 MPV 10.7 fL (7.4-10.4) H 10/25/24 02:33 Neut % (Auto) 70.0 % 10/25/24 02:33 Lymph % (Auto) 15.7 % 10/25/24 02:33 [place] % (Auto) 9.9 % 10/25/24 02:33 Eos % (Auto) 3.2 % 10/25/24 02:33 Baso % (Auto) 0.9 % 10/25/24 02:33 Neut # (Auto) 4.86 10^3/uL (1.8-7.7) 10/25/24 02:33 Lymph # (Auto) 1.1 10^3/uL (0.8-4.8) 10/25/24 02:33 [place] # (Auto) 0.7 10^3/uL (0.2-0.9) 10/25/24 02:33 Eos # (Auto) 0.2 10^3/uL (0.0-0.8) 10/25/24 02:33 Baso # (Auto) 0.1 10^3/uL (0.0-0.1) 10/25/24 02:33 Nucleated RBC % (auto) 0 % 10/25/24 02:33 Nucleated RBCs # 0.0 /100WBC 10/25/24 02:33 D-Dimer 0.59 ug/mLFEU (0-0.59) 10/23/24 01:20 Sodium 137 mmol/L (136-145) 10/25/24 02:33 Potassium 4.4 mmol/L (3.5-5.1) 10/25/24 02:33 Chloride 102 mmol/L (98-107) 10/25/24 02:33 Carbon Dioxide 22 mmol/L (22-29) 10/25/24 02:33 Anion Gap 17.4 (5-19) 10/25/24 02:33 BUN 15 mg/dL (8-23) 10/25/24 02:33 Creatinine 0.8 mg/dL (0.7-1.2) 10/25/24 02:33 GFR Calculation Not Reportable 10/25/24 02:33 Glucose 87 mg/dL (65-115) 10/25/24 02:33 POC Glucose 109 mg/dL (70-110) 10/22/24 21:02 Estimat Average Glucose 108 10/23/24 03:46 Hemoglobin A1c 5.4 % (4.0-6.0) 10/23/24 03:46 Calculated Osmolality 284 mOsm/kg (285-295) L 10/25/24 02:33 Calcium 8.8 mg/dL (8.5-10.5) 10/25/24 02:33 Phosphorus 2.7 mg/dL (2.5-4.5) 10/25/24 02:33 Magnesium 2.1 mg/dL (1.7-2.3) 10/25/24 02:33 Total Bilirubin 0.5 mg/dL (0.15-1.2) 10/25/24 02:33 AST 24 U/L (0-40) 10/25/24 02:33 ALT 18 U/L (0-41) 10/25/24 02:33 Alkaline Phosphatase 30 U/L (40-130) L 10/25/24 02:33 Lactate Dehydrogenase 247 U/L (135-225) H 10/23/24 03:46 Lactate Dehydrogenase Cancelled 10/23/24 03:46 Creatine Kinase 77 U/L (39-308) 10/23/24 03:46 Creatine Kinase Cancelled 10/23/24 03:46 Troponin T Baseline 161 ng/L (0-15) H* 10/22/24 21:50 Troponin T 120 Minute 141.3 ng/L (0-15) H 10/22/24 23:36 Delta Troponin T -19.7 ABS# (0-10) L 10/22/24 23:36 Troponin T Hi Sens 6Hr 110.9 ng/L (0-15) H 10/23/24 03:46 Troponin T Hi Sens 6Hr Delta -50.1 ng/L (0-12) L 10/23/24 03:46 C-Reactive Protein 3.0 mg/L (0.0-4.9) 10/22/24 21:50 NT-Pro-B Natriuret Pep 287 pg/mL (0-450) 10/23/24 01:20 Total Protein 5.8 g/dL (6.6-8.7) L 10/25/24 02:33 Albumin 3.6 g/dL (3.5-5.2) 10/25/24 02:33 Globulin 2.2 g/dL (1.3-4.6) 10/25/24 02:33 Triglycerides 42 mg/dL (0-150) 10/23/24 01:20 Cholesterol 181 mg/dL (0-200) 10/23/24 01:20 LDL Cholesterol, Calc 114 mg/dL (50-129) 10/23/24 01:20 Total VLDL Cholesterol 8 mg/dL (0-30) 10/23/24 01:20 HDL Cholesterol 59 mg/dL (60-100) L 10/23/24 01:20 Cholesterol/HDL Ratio 3.07 mg/dL (1.0-5.00) 10/23/24 01:20 Vitamin B12 304 pg/mL (232-1245) 10/23/24 01:20 TSH 2.28 uIU/mL (0.27-4.20) 10/23/24 01:20 Coronavirus (PCR) Negative (Negative) 10/22/24 21:50 Influenza A (PCR) Negative (Negative) 10/22/24 21:50 Influenza Type B (PCR) Negative (Negative) 10/22/24 21:50 RSV (PCR) Negative (Negative) 10/22/24 21:50 Vitals Last Vital Signs Temp 98.0 F 10/25/24 07:13 Pulse 55 L 10/25/24 08:40 Resp 16 10/25/24 08:40 BP 138/82 10/25/24 07:13 Pulse Ox 97 10/25/24 08:40 O2 Del Method Room Air 10/25/24 08:40 Discharge Plan Discharge Patient Disposition: Home Condition: Stable Prescriptions: New atorvastatin 40 mg Tablet 80 mg PO BEDTIME 30 Days Qty: 30 0RF clopidogrel 75 mg Tablet 75 mg PO DAILY 21 Days Qty: 21 0RF aspirin 81 mg Tablet,Delayed Release (Dr/Ec) 81 mg PO DAILY 30 Days Qty: 30 0RF lisinopril 10 mg Tablet 5 mg PO DAILY 30 Days Qty: 30 0RF Continued tamsulosin [Flomax] 0.4 mg capsule 0.4 mg PO .COMPLEX Rx Instructions: 0.4 mg PO; ketoconazole 2 % cream 1 applic TOPICAL DAILY Qty: 60 1RF Rx Instructions: Apply twice daily to affected areas in the groin x4 weeks then as needed for flares mupirocin 2 % ointment 1 applic TOPICAL BID Qty: 22 1RF Rx Instructions: Apply twice daily to open area on scrotum until healed sildenafil [Viagra] 50 mg Tablet 50 mg PO DAILY PRN (Reason: Erectile Dysfunction) Rx Instructions: administer 30 minutes to 4 hours before activity Discharge Orders: Discharge Order (Routine); Ordered 10/25/24 Ordered By: Ondina Storey Other Ambulatory Orders: Physical Therapy Eval and Treat Outpatient (Order) Timeframe: 20241025 Facility: [facility] - Location: Physical Therapy Ordered By: Ondina Storye Referrals: Caro Schrader MD [Primary Care Provider] - 4-7 days (posterior circulation stroke follow up, elevated troponins, likely from stroke ) Jed Oneill MD [Physician] - 3 weeks (posterior circulation stroke- hospital discharge follow up ) Discharge Diet: Cardiac Discharge Activity: Resume usual activity Patient Instructions: Lisinopril (By mouth), Aspirin (By mouth), Atorvastatin (By mouth), Clopidogrel (By mouth), Opioid Safety, Stroke Stoplight Discharge Attestations Time Spent in Discharge Care*: greater than 30 min Quality Metrics Clinical Quality Measures [ Cerebrovascular Accident { Contraindication to Antithrombotic: None; antithrombotic prescribed (not in TNK window); Contraindication to Anticoagulation: Overlap treatment not indicated; Contraindication to Statin: None; Statin prescribed;}] Coding Level of Care Code Acute Code for [facility] Diagnoses Posterior circulation stroke I63.50 Elevated troponin R79.89 Vertigo R42 Nausea & vomiting R11.2 Hypertension I10
--- NOTE | 2024-10-25 11:39 | PC.OT ---
OT EVALUATION HELD DUE TO SCHEDULED PATIENT D/C
[2024-10-25 11:51] VITALS: BP 162/89; PULSE 56; RESP 17; TEMP 36.7; O2SAT 96
[2024-10-25 12:00] VITALS: BP 162/89; PULSE 56; RESP 17; TEMP 36.7; O2SAT 96
== END 2024-10-25 11:45 | disposition home or self-care (01) | DRG 64 ==
LOC: ER 10-23 00:13 → MEDSURG 10-23 01:18
PROVIDERS: Internal Medicine; Admitting Provider Internal Medicine; Emergency Provider Emergency Medicine; PCP Internal Medicine; Visit Provider Student in an Organized Health Care Education/Training Program
DX: I63.439 Cerebral infarction due to embolism of unspecified posterior cerebral artery (principal); I21.4 Non-ST elevation (NSTEMI) myocardial infarction; I10 Essential (primary) hypertension; E66.01 Morbid (severe) obesity due to excess calories; Z68.32 Body mass index [BMI] 32.0-32.9, adult; N40.0 Benign prostatic hyperplasia without lower urinary tract symptoms
CPT/HCPCS: 36415; 36416; 70496; 70498; 70551; 71045; 80048; 80053; 80061; 80069; 82550; 82607; 82962; 83036; 83615; 83735; 83880; 84100; 84443; 84484; 85025; 85378; 86140; 87637; 93005; 93306; 96372; 96374; 97112; 97161; 99285; J1650; J2405; J7030

== ENCOUNTER → 2024-11-15 08:01 | Outpatient (BNVA) | payer MEDICARE, SELFPAY | PROVIDERS: Family Provider Internal Medicine; PCP Internal Medicine; Referring Provider Student in an Organized Health Care Education/Training Program; Visit Provider Psychiatry & Neurology Neurology | DX: I63.50 Cerebral infarction due to unspecified occlusion or stenosis of unspecified cerebral artery (principal) | CPT/HCPCS: 99202 ==

== ENCOUNTER → 2024-11-16 14:37 | Outpatient (BNVA) | payer MEDICARE, SELFPAY | PROVIDERS: Family Provider Internal Medicine; PCP Internal Medicine; Visit Provider Internal Medicine Cardiovascular Disease | DX: I25.2 Old myocardial infarction (principal); I49.9 Cardiac arrhythmia, unspecified; I10 Essential (primary) hypertension; Z86.73 Personal history of transient ischemic attack (TIA), and cerebral infarction without residual deficits; R79.89 Other specified abnormal findings of blood chemistry | CPT/HCPCS: 99204 ==